=== PATIENT | male | born 1990 | race Caucasian/White ===

== ENCOUNTER 2016-12-19 03:47 | Emergency (ER) | payer BC ==
--- NOTE | 2016-12-19 04:21 | ED ---
Abdominal Pain HPI - General Chief Complaint: Abdominal Pain Stated Complaint: lower abd pain Time Seen by Provider: 12/19/16 04:10 Source: patient, RN notes reviewed Mode of arrival: ambulatory Limitations: no limitations - History of Present Illness Initial Comments: This is a 26-year-old male with a benign history who states he had the onset 3 days ago of left-sided lower abdominal pain after lifting something heavy work. He states the pain is sharp it was 7/10 in severity when he tried to move his 0 at rest. He did have some nausea no vomiting no fevers chills or sweats. No diarrhea no constipation dysuria. No prior abdominal surgeries. MD Complaint: abdominal pain - Related Data Previous Rx's Medication Instructions Recorded Cyclobenzaprine [Flexeril] 10 mg PO TID #14 tab 12/19/16 Ibuprofen [Motrin] 800 mg PO Q6HR PRN #20 tab 12/19/16 Allergies Allergy/AdvReac Type Severity Reaction Status Date / Time No Known Allergies Allergy Verified 12/19/16 04:02 Review of Systems ROS Statement: Those systems with pertinent positive or pertinent negative responses have been documented in the HPI. ROS Other: All systems not noted in ROS Statement are negative. Past Medical History Past Medical History: GERD/Reflux History of Any Multi-Drug Resistant Organisms: None Reported Past Surgical History: Hernia Repair Past Psychological History: No Psychological Hx Reported Smoking Status: Current every day smoker Past Alcohol Use History: None Reported Past Drug Use History: None Reported General Exam - General Exam Comments Initial Comments: Is a well-developed well-nourished awake alert oriented times 3 male. Limitations: no limitations General appearance: alert, in no apparent distress Head exam: Present: atraumatic, normocephalic, normal inspection Eye exam: Present: normal appearance, PERRL, EOMI. Absent: scleral icterus, conjunctival injection, periorbital swelling ENT exam: Present: normal exam, mucous membranes moist Neck exam: Present: normal inspection. Absent: tenderness, meningismus, lymphadenopathy Respiratory exam: Present: normal lung sounds bilaterally. Absent: respiratory distress, wheezes, rales, rhonchi, stridor Cardiovascular Exam: Present: regular rate, normal rhythm, normal heart sounds. Absent: systolic murmur, diastolic murmur, rubs, gallop, clicks GI/Abdominal exam: Present: soft, tenderness (Tennis palpation of the right and left lower quadrants palpation no definite defect is noted in the rectus. No tenderness lateral to the rectus sheath. There is McBurney point tenderness however. No evidence of any inguinal hernias.), normal bowel sounds. Absent: distended, guarding, rebound, rigid Extremities exam: Present: normal inspection, full ROM, normal capillary refill. Absent: tenderness, pedal edema, joint swelling, calf tenderness Back exam: Present: normal inspection Neurological exam: Present: alert, oriented X3, CN II-XII intact Psychiatric exam: Present: normal affect, normal mood Skin exam: Present: warm, dry, intact, normal color. Absent: rash Course Vital Signs 12/19/16 03:59 Temperature 98.4 F Pulse Rate 79 Respiratory 20 Rate Blood Pressure 157/80 O2 Sat by Pulse 99 Oximetry Medical Decision Making - Medical Decision Making I did discuss findings with the patient. The presentation is consistent with musculoskeletal pain. He'll be placed on appropriate medication - Radiology Data Radiology results: report reviewed (I did review the imaging and report no acute findings are seen there is evidence of diverticulosis no evidence of any herniations or masses.), image reviewed Disposition Clinical Impression: Abdominal wall pain, Muscle strain Disposition: HOME SELF-CARE Condition: Good Instructions: Musculoskeletal Pain (ED) Prescriptions: Cyclobenzaprine [Flexeril] 10 mg PO TID #14 tab Ibuprofen [Motrin] 800 mg PO Q6HR PRN #20 tab PRN Reason: Pain
--- NOTE | 2016-12-19 04:59 | CT ---
EXAM: CT Abdomen and Pelvis Without Intravenous Contrast. CLINICAL HISTORY: Reason: Pain TECHNIQUE: Axial computed tomography images of the abdomen and pelvis without intravenous contrast. CTDI is 14.80 mGy and DLP is 745.90 mGy-cm COMPARISON: No relevant prior studies available. FINDINGS: Lower thorax: No acute findings. ABDOMEN: Liver: Fatty liver. Gallbladder and bile ducts: Unremarkable. No calcified stones. No ductal dilation. Pancreas: Unremarkable. No ductal dilation. Spleen: Unremarkable. No splenomegaly. Adrenals: Unremarkable. No mass. Kidneys and ureters: Unremarkable. No obstructing stones. No hydronephrosis. Stomach and bowel: Distal colonic diverticulosis but no acute diverticulitis. No appendicitis, colitis or bowel obstruction. Appendix: See above. PELVIS: Bladder: Unremarkable. No stones. Reproductive: Unremarkable as visualized. ABDOMEN and PELVIS: Intraperitoneal space: Unremarkable. No free air. No significant fluid collection. Bones/joints: No acute fracture. No dislocation. Soft tissues: Unremarkable. Vasculature: Unremarkable. No abdominal aortic aneurysm. Lymph nodes: Unremarkable. No enlarged lymph nodes. IMPRESSION: Fatty liver and colonic diverticulosis but no acute or inflammatory disease or bowel obstruction.
[2016-12-19 05:41] VITALS: BP 143/65; PULSE 74; RESP 16; TEMP 97.9
== END 2016-12-19 05:41 | disposition home or self-care (01) ==
LOC: EC 03:47
DX: S39.011A Strain of muscle, fascia and tendon of abdomen, initial encounter (principal); X50.0XXA Overexertion from strenuous movement or load, initial encounter; Y99.0 Civilian activity done for income or pay; F17.200 Nicotine dependence, unspecified, uncomplicated
CPT/HCPCS: 74176; 99284

== ENCOUNTER 2020-01-29 18:57 | Inpatient (IN) | payer BC, MEDICAID ==
[2020-01-29] MEDS ORDERED: LORazepam 1 MG TAB PO STA (19:30)
--- NOTE | 2020-01-29 19:37 | ED ---
General Adult HPI - General Chief complaint: Psychiatric Symptoms Stated complaint: Mental Health Time Seen by Provider: 01/29/20 19:16 Source: patient, RN notes reviewed, old records reviewed Mode of arrival: ambulatory Limitations: no limitations - History of Present Illness Initial comments: 29-year-old male patient presents to ED for chief complaint of anxiety. Pt reports she has a history of anxiety. States that today he had suicidal thoughts. States he did grab a knife with thoughts of hurting himself however he did not and then called a suicide hotline. Denies any action to hurt himself or thoughts of hurting others. Denies any physical complaints. Systemic: Pt denies fatigue, fever/chills, rash. Pt denies weakness, night sweats, weight loss. Neuro: Pt denies headache, visual disturbances, syncope or pre-syncope. HEENT: Pt denies ocular discharge or irritation, otalgia, rhinorrhea, pharyngitis or notable lymphadenopathy. Cardiopulmonary: Pt denies chest pain, SOB, heart palpitations, dyspnea on exertion. Abdominal/GI: Pt denies abdominal pain, n/v/d. : Pt denies dysuria, burning w/ urination, frequency/urgency. Denies new onset urinary or bowel incontinence. MSK: Pt denies myalgia, loss of strength or function in extremities. Neuro: Pt denies new onset weakness, paresthesias. - Related Data Home Medications Medication Instructions Recorded Confirmed Omeprazole [PriLOSEC] 20 mg PO BID PRN 01/29/20 01/29/20 Allergies Allergy/AdvReac Type Severity Reaction Status Date / Time No Known Allergies Allergy Verified 01/29/20 19:59 Review of Systems ROS Statement: Those systems with pertinent positive or pertinent negative responses have been documented in the HPI. ROS Other: All systems not noted in ROS Statement are negative. Past Medical History Past Medical History: No Reported History History of Any Multi-Drug Resistant Organisms: None Reported Past Surgical History: Hernia Repair Past Psychological History: Anxiety Smoking Status: Current every day smoker Past Alcohol Use History: Occasional Past Drug Use History: None Reported General Exam - General Exam Comments Initial Comments: Constitutional: NAD, AOX3, Pt has pleasant affect. HEENT: NC/AT, trachea midline, neck supple, no lymphadenopathy. Posterior pharynx non erythematous, without exudates. External ears appear normal, without discharge. Mucous membranes moist. Cardiopulmonary: RRR, no murmurs, rubs or gallops, no JVD noted. Lungs CTAB in anterior and posterior miles. No peripheral edema. Abdominal exam: Abdomen soft and non-distended. Abdomen non-tender to palpation in all 4 quadrants. Bowel sounds active in LLQ. No hepatosplenomegaly. No ecchymosis Neuro: CN II-XII grossly intact. No nuchal rigidity. No raccon eyes, no walker sign. MSK: Full active ROM in upper and lower extremities, 5/5 stregnth. Limitations: no limitations Course Vital Signs 01/29/20 01/29/20 18:59 21:19 Temperature 99.1 F 98.4 F Pulse Rate 85 84 Respiratory 18 18 Rate Blood Pressure 146/89 151/75 O2 Sat by Pulse 96 99 Oximetry Medical Decision Making - Medical Decision Making 29-year-old male patient presents to ED for evaluation of anxiety, suicidal thoughts. Patient had a knife with thoughts of hurting himself but did not take any action. Patient will signs are stable, afebrile. Physical exam test for acute pathology. Patient evaluated by EPS recommended for admission. Patient is agreeable to this. Case discussed with Dr. Kc. - Lab Data Lab Results 01/29/20 Range/Units 19:54 Urine Opiates Screen Not Detected (NotDetected) Ur Oxycodone Screen Not Detected (NotDetected) Urine Methadone Screen Not Detected (NotDetected) Ur Propoxyphene Screen Not Detected (NotDetected) Ur Barbiturates Screen Not Detected (NotDetected) U Tricyclic Antidepress Not Detected (NotDetected) Ur Phencyclidine Scrn Not Detected (NotDetected) Ur Amphetamines Screen Not Detected (NotDetected) U Methamphetamines Scrn Not Detected (NotDetected) U Benzodiazepines Scrn Not Detected (NotDetected) Urine Cocaine Screen Not Detected (NotDetected) U Marijuana (THC) Screen Not Detected (NotDetected) Disposition Clinical Impression: Psychiatric disorder Disposition: ADMITTED IP TO THIS HOSP Condition: Serious Is patient prescribed a controlled substance at d/c from ED?: No
[2020-01-29 20:52] LABS: Amphetamine Screen,Urine Not Detected (NotDetected); Barbiturate Screen,Urine Not Detected (NotDetected); Benzodiazepines Screen,Urine Not Detected (NotDetected); Cocaine Screen,Urine Not Detected (NotDetected); Methadone Screen, Urine Not Detected (NotDetected); Opiate Screen,Urine Not Detected (NotDetected); Oxycodone Screen, Urine Not Detected (NotDetected); Phencyclidine Screen,Urine Not Detected (NotDetected); Tricyclic Antidepressant,Urine Not Detected (NotDetected); Urn Cannabinoid Scrn Not Detected (NotDetected)
[2020-01-29] MEDS ORDERED: LORazepam 1 MG TAB PO PRN (21:31)
[2020-01-29] MEDS ORDERED: ACETAMINOPHEN TAB 325 MG TAB PO PRN (21:31)
[2020-01-29] MEDS ORDERED: MAGNESIUM HYDROXIDE 2,400 MG/10 ML CUP PO PRN (21:31)
[2020-01-29] MEDS ORDERED: MAG HYDROX/AL HYDROX/SIMETH 30 ML CUP PO PRN (21:31)
[2020-01-29] MEDS ORDERED: ZIPRASIDONE 20 MG VIAL IM PRN (21:31)
[2020-01-30 07:53] LABS: Basophils % (A) 1 %; Eosinophils # (A) 0.2 k/uL (0-0.7); Eosinophils % (A) 3 %; HGB 15.5 gm/dL (13.0-17.5); Lymphocytes # (A) 1.8 k/uL (1.0-4.8); Lymphocytes % (A) 27 %; MCH 30.1 pg (25.0-35.0); MCHC 33.1 g/dL (31.0-37.0); MCV 90.9 fL (80.0-100.0); Mean Platelet Volume 9.1; Monocytes # (A) 0.5 k/uL (0-1.0); Monocytes % (A) 7 %; Neutrophils % (A) 60 %; Platelet Count 195 k/uL (150-450); RBC 5.17 m/uL (4.30-5.90); RDW 13.4 % (11.5-15.5); WBC 6.7 k/uL (3.8-10.6)
[2020-01-30 08:03] LABS: ALT 93 U/L (4-49); AST 39 U/L (17-59); African American GFR (CKD) >90 (>60 ml/min/1.73 sqM); Albumin 4.4 g/dL (3.5-5.0); Alkaline Phosphatase 48 U/L (38-126); Anion Gap 9 mmol/L; Blood Urea Nitrogen 10 mg/dL (9-20); Calcium 9.7 mg/dL (8.4-10.2); Carbon Dioxide 27 mmol/L (22-30); Chloride 104 mmol/L (98-107); Cholesterol 145 mg/dL (<200); Glucose 105 mg/dL (74-99); HDL Cholesterol 34 mg/dL (40-60); LDL Cholesterol,Calculated 63 mg/dL (0-99); Non-African American GFR(CKD) 80 (>60 ml/min/1.73 sqM); Potassium 4.4 mmol/L (3.5-5.1); Sodium 140 mmol/L (137-145); Total Bilirubin 0.7 mg/dL (0.2-1.3); Total Protein 7.2 g/dL (6.3-8.2); Triglycerides 241 mg/dL (<150)
[2020-01-30] MEDS: PANTOPRAZOLE 40 MG TABLET PO SCH ×2 (09:32→17:15)
[2020-01-30 11:57] LABS: Hemoglobin A1C 5.7 % (4.0-6.0)
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
[2020-01-30] MEDS ORDERED: ARIPiprazole 2 MG TAB PO PRN (14:00)
[2020-01-30] MEDS: lamoTRIgine 25 MG TAB PO SCH (14:33)
[2020-01-30] MEDS ORDERED: NON FORMULARY DRUG (Omeprazole 20 MG) PO PRN (16:45)
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
[2020-01-30] MEDS ORDERED: ARIPiprazole 5 MG TAB PO SCH (21:00)
[2020-01-31] MEDS: PANTOPRAZOLE 40 MG TABLET PO SCH ×2 (08:18→17:10)
[2020-01-31] MEDS: HYDROCHLOROTHIAZIDE 25 MG TAB PO SCH (08:18)
[2020-01-31] MEDS: lamoTRIgine 25 MG TAB PO SCH ×2 (08:18→22:34)
--- NOTE | 2020-01-31 12:19 | P.PN ---
Subjective Progress Note Date: 01/31/20 Patient was seen and chart was reviewed. Case discussed with staff. [The patient] admits to fair energy and fair appetite. The patient reports good sleep last night. At this time patient denies any suicidal or homical ideations, intent or plan. Patient denies any auditory, visual hallucinations and denies any paranoia or delusions. The patient shows poor insight into his illness. He reports that the only thing that works for him is "medical marijuana". Patient denies any side effects from the medications and has been compliant with meds. Objective - Vital Signs Vital signs: Vital Signs Temp 98.2 F 01/31/20 06:40 Pulse 52 L 01/31/20 06:40 Resp 16 01/31/20 06:40 BP 132/69 01/31/20 06:40 Pulse Ox 98 01/31/20 06:40 - Exam Mental Status Exam: General Appearance: Patient appears to be stated age is alert, directable. fair hygiene and grooming. Patient has improving eye contact. Behavior: Patient is seated without any agitated behavior. Appears to be less anxious Speech: Patient's speech is fluent and nonpressured. soft tone. Mood/Affect: Patient reports their mood/anxiety is mildly improving, affect is congruent Suicidality/Homicidality: Patient denies having any suicidal or homicidal ideation intent or plan. Perceptions: Patient denies any auditory or visual hallucinations. Though content/process: Linear and goal-directed. Memory and concentration: AOX3, grossly intact for the purposes of this session. Judgment and insight: Limited - Labs CBC & Chem 7: 01/30/20 07:05 01/30/20 07:05 Assessment and Plan Assessment: IMPRESSIONS: Bipolar 2 disorder depressive episode. Plan: PLAN: Plan: -Patient continues to meet criteria for inpatient psychiatric admission for symptom stabilization and safety. Patient has signed adult voluntary form and medication consent and was placed in patient's chart. -Medications: Increase Lamictal 25 mg PO bid Continue Abilify 5 mg PO qhs and 2 mg PO bid PRN. Will initiate discharge planning. -NRT -SW on board for discharge planning.
--- NOTE | 2020-01-31 12:40 | P.PN ---
Subjective Progress Note Date: 01/31/20 The patient seen in the chart was reviewed. The patient complained of feeling increasingly tired today. He reports lack of energy and motivation. The patient complained of poor sleep last night and reported that he only got 3 hours. The patient reports that Abilify is not helping him sleep but keeps him awake more. The patient denies any auditory or visual hallucinations. He reports fair appetite. The patient denies any active suicidal or homicidal ideations. He continues to report dysphoric mood but denies any crying spells. The patient denies any side effects on the medications at this time. Objective - Vital Signs Vital signs: Vital Signs Temp 97.9 F 01/31/20 12:15 Pulse 52 L 01/31/20 06:40 Resp 16 01/31/20 06:40 BP 132/69 01/31/20 06:40 Pulse Ox 98 01/31/20 06:40 - Exam Mental Status Exam: General Appearance: Patient appears to be stated age is alert, directable. fair hygiene and grooming. Patient has improving eye contact. Behavior: Patient is seated without any agitated behavior. Appears to be less anxious Speech: Patient's speech is fluent and nonpressured. soft tone. Mood/Affect: Patient reports their mood/anxiety is depressed, affect is constricted Suicidality/Homicidality: Patient denies having any suicidal or homicidal ideation intent or plan. Perceptions: Patient denies any auditory or visual hallucinations. Though content/process: Linear and goal-directed. Memory and concentration: AOX3, grossly intact for the purposes of this session. Judgment and insight: Limited - Labs CBC & Chem 7: 01/30/20 07:05 01/30/20 07:05 Assessment and Plan Assessment: IMPRESSIONS: Bipolar 2 disorder depressive episode. Plan: PLAN: Plan: -Patient continues to meet criteria for inpatient psychiatric admission for symptom stabilization and safety. Patient has signed adult voluntary form and medication consent and was placed in patient's chart. One-to-one supportive psychotherapy was provided. Continue milieu therapy. -Medications: Increase Lamictal 25 mg PO bid Change Abilify 5 mg PO qam and 2 mg PO bid PRN. Continue to monitor and monitor closely for signs and symptoms getting worse or possible side effects on the medication. SW on board for discharge planning.
[2020-01-31] MEDS: traZODone HCL 50 MG TAB PO SCH (22:34)
[2020-02-01] MEDS: PANTOPRAZOLE 40 MG TABLET PO SCH ×2 (08:05→17:50)
[2020-02-01] MEDS: HYDROCHLOROTHIAZIDE 25 MG TAB PO SCH (08:56)
[2020-02-01] MEDS: lamoTRIgine 25 MG TAB PO SCH ×2 (08:56→20:48)
[2020-02-01] MEDS: ARIPiprazole 5 MG TAB PO SCH (08:56)
--- NOTE | 2020-02-01 14:50 | P.PN ---
Subjective Progress Note Date: 02/01/20 The patient seen in the chart was reviewed. The patient reports feeling better today. He reports improved sleep last night and feels well rested today. The patient denies any depression or anxiety at this time. The patient reported that he was grinding his teeth in his sleep last night and broke a tooth. The patient is asking to be discharged soon. The patient reports being a little more active on the unit and has been going to most of the unit activities and groups. The patient denies any auditory or visual hallucinations. He denies any active suicidal or homicidal ideations at this time. The patient denies any side effects on the medication and has been compliant with the treatment. Objective - Vital Signs Vital signs: Vital Signs Temp 98.4 F 02/01/20 06:35 Pulse 72 02/01/20 08:57 Resp 16 02/01/20 06:35 BP 136/72 02/01/20 08:57 Pulse Ox 98 01/31/20 06:40 - Exam Mental Status Exam: General Appearance: Patient appears to be stated age is alert, directable. fair hygiene and grooming. Patient has good eye contact. Behavior: Patient is seated without any agitated behavior. Appears to be less anxious Speech: Patient's speech is fluent and nonpressured. Normal tone. Mood/Affect: Patient reports their mood/anxiety is improving and affect is euthymic. Suicidality/Homicidality: Patient denies having any suicidal or homicidal ideation intent or plan. Perceptions: Patient denies any auditory or visual hallucinations. Though content/process: Linear and goal-directed. Memory and concentration: AOX3, grossly intact for the purposes of this session. Judgment and insight: Limited - Labs CBC & Chem 7: 01/30/20 07:05 01/30/20 07:05 Assessment and Plan Assessment: IMPRESSIONS: Bipolar 2 disorder depressive episode. Plan: PLAN: Plan: -Patient continues to meet criteria for inpatient psychiatric admission for symptom stabilization and safety. Patient has signed adult voluntary form and m edication consent and was placed in patient's chart. One-to-one supportive psychotherapy was provided. Continue milieu therapy. -Medications: Continue Lamictal 25 mg PO bid Change Abilify 5 mg PO qam and 2 mg PO bid PRN. Continue to monitor and monitor closely for signs and symptoms getting worse or possible side effects on the medication. SW on board for discharge planning. Plan to stabilize mood and functioning and discharge home with outpatient follow-up when stabilized.
[2020-02-01] MEDS: traZODone HCL 50 MG TAB PO SCH (23:12)
[2020-02-02] MEDS: PANTOPRAZOLE 40 MG TABLET PO SCH (03:58)
[2020-02-02 06:31] VITALS: BP 166/77; PULSE 97; RESP 17
[2020-02-02] MEDS: ARIPiprazole 5 MG TAB PO SCH (08:31)
[2020-02-02] MEDS: lamoTRIgine 25 MG TAB PO SCH (08:31)
[2020-02-02] MEDS: HYDROCHLOROTHIAZIDE 25 MG TAB PO SCH (08:31)
--- NOTE | 2020-02-02 11:58 | P.PN ---
Subjective Progress Note Date: 02/02/20 Discharge Note: Patient was seen and chart was reviewed. Case discussed with staff. The patient reports doing better and denies any new problems at this time. [ He] admits to fair energy and fair appetite. The patient reports good sleep and appetite. At this time patient denies any suicidal or homical ideations, intent or plan. Patient denies any auditory, visual hallucinations and denies any paranoia or delusions. Patient denies any side effects from the medications and has been compliant with meds. Objective - Vital Signs Vital signs: Vital Signs Temp 98.4 F 02/02/20 06:28 Pulse 97 02/02/20 06:28 Resp 17 02/02/20 06:28 BP 166/77 02/02/20 06:28 Pulse Ox 97 02/02/20 06:28 - Exam Mental Status Exam: General Appearance: Patient appears to be stated age is alert, directable. fair hygiene and grooming. Patient has good eye contact. Behavior: Patient is seated without any agitated behavior. Speech: Patient's speech is fluent and nonpressured. soft tone. Mood/Affect: Patient reports their mood/anxiety is good, affect is congruent Suicidality/Homicidality: Patient denies having any suicidal or homicidal ideation intent or plan. Perceptions: Patient denies any auditory or visual hallucinations. Though content/process: There is no evidence of any delusional thought content and thought process is linear and goal-directed. Memory and concentration: AOX3, grossly intact for the purposes of this session. Judgment and insight: Fair - Labs CBC & Chem 7: 01/30/20 07:05 01/30/20 07:05 Assessment and Plan Assessment: IMPRESSIONS: Bipolar 2 disorder depressive episode. Plan: PLAN: One-to-one supportive psychotherapy was provided. Continue milieu therapy. -Medications: Continue Lamictal 25 mg PO bid Change Abilify 5 mg PO qam and 2 mg PO bid PRN. Discussed discharge planning. -Discharge home today to follow-up as an outpatient. The patient's condition is stable at the time of discharge.
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
[2020-02-02 13:13] VITALS: TEMP 97.9
== END 2020-02-02 14:00 | disposition home or self-care (01) | DRG 885 ==
LOC: EC 18:57 → 3MHU 21:21
PROVIDERS: ADMIT Psychiatry & Neurology Psychiatry; ATTEND Psychiatry & Neurology Psychiatry
DX: F31.81 Bipolar II disorder (principal); R45.851 Suicidal ideations; F41.0 Panic disorder [episodic paroxysmal anxiety]; F17.200 Nicotine dependence, unspecified, uncomplicated; F60.0 Paranoid personality disorder; Z91.410 Personal history of adult physical and sexual abuse
CPT/HCPCS: 80053; 80061; 80306; 82075; 83036; 84443; 85025; 99285